=== PATIENT | male | born 1955 | race Caucasian/White ===

== ENCOUNTER 2024-04-11 10:38 | Emergency (ER) | payer MEDICARE, SELFPAY ==
[2024-04-11] VITALS (12 sets, daily range): BP systolic 126–181; BP diastolic 96–137; PULSE 63–114; RESP 20–25; TEMP 36.6; O2SAT 95–99
--- NOTE | 2024-04-11 11:31 | EKG12_ITS ---
Test Reason : SOB Blood Pressure : / mmHG Vent. Rate : 098 BPM Atrial Rate : 098 BPM P-R Int : 148 ms QRS Dur : 098 ms QT Int : 354 ms P-R-T Axes : 052 014 201 degrees QTc Int : 451 ms Normal sinus rhythm Possible Left atrial enlargement Possible Inferior infarct (cited on or before 29-AUG-2004) T wave abnormality, consider lateral ischemia Abnormal ECG Confirmed by AISHA FRANCIS, CLAUDE ([id number]), purchase request editor MORGAN NOVA ([id number]) on 04/12/2024 7:59:34 AM Referred By: Confirmed By:CLAUDE LEONARD MD
--- NOTE | 2024-04-11 11:32 | ED.VIS.DYS ---
HPI History of Present Illness Chief Complaint: Shortness of Breath Detail of Chief Complaint: Shortness of breath Informant: patient Narrative Narrative: Patient presents to the emergency department complaint shortness of breath that started 2 or 3 days ago. Patient also noted lower extremity swelling. Denies recent travel or surgery. No history of PE or DVT. He has no heart history and no history of CHF. He has minimal cough. He complains more of exertional dyspnea. No chest pain or pressure or heaviness noted. PFSH PFSH Home Medications ?Medication ?Instructions ?Recorded ?Last Taken ?Type apixaban 5 mg (74 tabs) tablets in See Rx Instructions .Route 04/11/24 Unknown Rx a dose pack (Eliquis DVT-PE Treat .COMPLEX #74 tabs 30D Start) furosemide 40 mg tablet (Lasix) 40 mg PO DAILY #5 tabs 04/11/24 Unknown Rx metoprolol succinate 25 mg capsule 25 mg PO DAILY #30 ea 04/11/24 Unknown Rx sprinkle, ext. release 24 hr (Kapspargo Sprinkle) Allergy/AdvReac Type Severity Reaction Status Date / Time bee venom protein (honey AdvReac Severe Anaphylaxis Verified 04/11/24 10:43 bee) (bee sting) Social History Smoking Status: Current every day smoker tobacco type: smokeless tobacco ROS ROS ED Review of Systems ROS Unobtainable: other Constitutional Constitutional ED: Reports lethargy; Denies chills, fever(s), sweats or weight loss Eyes Eyes: Denies blurry vision, change in vision or diplopia ENT ENT ED: Denies rhinorrhea or sore throat Cardiovascular Cardiovascular: Denies chest pain, orthopnea or racing heartbeat Respiratory/Chest Respiratory/Chest: Reports cough, dyspnea and dyspnea on exertion; Denies orthopnea or sputum Gastrointestinal Gastrointestinal: Denies abdominal pain, diarrhea, nausea or vomiting Genitourinary Genitourinary ED: Denies dysuria, hematuria or urinary frequency Musculoskeletal Musculoskeletal: Reports other Details: Bilateral leg swelling ; Denies arthralgias, back pain, myalgias or neck pain Integumentary Denies abscess, Abrasions or rash Neurologic Neurologic: Denies headache(s) or weakness Psychiatric Psychiatric: Denies anxiety, depression or suicidal thoughts Endocrine Endocrinology: Denies polydipsia, polyphagia or polyuria Hematologic/Lymphatic Hematologic/Lymphatic: Denies easy bleeding, easy bruising or lymphadenopathy Allergic/Immunologic Allergic/Immunologic ED: Denies mouth swelling, tongue swelling or urticaria EXAM Physical Exam Const Vital Signs: 04/11/24 10:41 04/11/24 10:50 04/11/24 11:39 Temperature 97.8 F Temperature Source Temporal Pulse Rate 114 H Respiratory Rate 20 H Respiratory Effort Short of Breath Respiratory Depth Normal Respiratory Pattern Tachypnea Blood Pressure 170/126 H Blood Pressure Mean 140 Pulse Ox 97 96 Oxygen Delivery Method Room Air Room Air Room Air 04/11/24 11:40 04/11/24 11:43 04/11/24 12:00 Temperature 98 F 97.8 F Temperature Source Temporal Temporal Pulse Rate 98 100 102 H Respiratory Rate 24 H 22 H 25 H Respiratory Effort Respiratory Depth Respiratory Pattern Blood Pressure 150/120 H 150/96 H 162/125 H Blood Pressure Mean 130 114 137 Pulse Ox 95 96 96 Oxygen Delivery Method Room Air Room Air Room Air 04/11/24 13:00 04/11/24 14:00 04/11/24 15:05 Temperature 97.9 F 98 F Temperature Source Temporal Temporal Pulse Rate 102 H 100 110 H Respiratory Rate 23 H 24 H Respiratory Effort Respiratory Depth Respiratory Pattern Blood Pressure 165/105 H 156/104 H 181/133 H Blood Pressure Mean 125 121 149 Pulse Ox 98 96 Oxygen Delivery Method Room Air Room Air 04/11/24 15:08 04/11/24 15:11 Temperature Temperature Source Pulse Rate 82 63 Respiratory Rate Respiratory Effort Respiratory Depth Respiratory Pattern Blood Pressure 181/137 H 126/108 H Blood Pressure Mean 151 114 Pulse Ox Oxygen Delivery Method Positive well nourished and well developed General Appearance ED: well developed and NAD HEENT Reports TM's clear and moist mucous membranes normocephalic and atraumatic; Negative for trauma or tenderness Tympanic Membrane ED: Yes TM's clear Eyes PERRL and EOMs intact bilaterally General Eye ED: Negative for pale conjunctiva or scleral icterus Neck no lymphadenopathy, supple and no JVD General: Negative for tenderness Chest Wall inspection of chest normal and palpation of chest normal Chest: Negative for tenderness Resp normal respiratory effort and clear to auscultation bilaterally Effort and Inspection: Negative for respiratory distress or pain with movement Auscultation: Negative for rhonchi, wheezes or diminished lung sounds Cardio regular rate, regular rhythm, S1 normal heart sound, S2 normal heart sound and no murmurs Peripheral Pulses: pulses 2+ throughout GI normal to inspection, nondistended, normoactive bowel sounds, soft to palpation, non-tender, non-distended and no masses Back/Spine no CVA tenderness and no thoracic nor lumbar tenderness Extremity normal to inspection Extremity Narrative: +2 edema below the knees bilaterally. General Extremety ED: Negative for edema General Extremity: Negative for edema Neuro oriented x3, CN's II-XII intact bilaterally, no sensory deficits noted and gait normal Sensorium / Orientation: awake, alert, oriented to person, oriented to place and oriented to time Motor Exam: strength 5/5 throughout and strength abnormal Psych mental status grossly normal Skin no rashes or lesions noted and no wounds MDM MDM MDM Narrative Medical decision making narrative: Patient presents to the ER with complaint of exertional dyspnea for 2 to 3 days with leg edema. Denies recent travel or surgery. No history of PE or DVT. No heart history. No history of CHF. Denies fever or recent illness. He has a slight cough. In the differential would be upper respiratory infection such as pneumonia versus acute coronary syndrome or PE. EKG obtained arrival showed a sinus rhythm with ventricular rate of [address] changes laterally. When compared with prior EKG from 2004 the nonspecific changes laterally are new. CBC with differential obtained showed a white count of 5.8 with hemoglobin 14.7 and platelet count of 134. Chemistries unremarkable. D-dimer elevated 1.83. Troponin normal at 57. BT HABITAT BIOLOGIST was elevated at 694. CTA of the chest showed small bilateral pulmonary emboli in the tertiary branches. Chest x-ray was unremarkable. Patient ambulated in the department and was not hypoxic. I did start patient on apixaban as well as Lasix and labetalol for elevated blood pressures here. Discussed case with hospitalist to felt patient did not meet criteria for inpatient admission and recommended outpatient follow-up. Patient has an appoint with cardiology in 2 days. Discussed case with patient's primary care physician Dr. Raji Melendez. Patient will be started on Eliquis as well as metoprolol and Lasix. He is to keep his appointment with cardiology. Patient will require further testing such as echocardiogram. Patient advised to return if chest pain, increasing shortness of breath, or condition should worsen anyway. Lab Data Attestation: I reviewed the patient's lab results. Labs: Laboratory Results - last 24 hr 04/11/24 11:25 WBC 5.8 RBC 4.74 Hgb 14.7 Hct 44.9 MCV 94.7 H MCH 31.0 MCHC 32.7 RDW Std Deviation 49.4 H RDW Coeff of Anastasia 14.2 Plt Count 134 L MPV 10.7 Immature Gran % (Auto) 0.300 Neut % (Auto) 74.6 H Lymph % (Auto) 14.4 L [place] % (Auto) 9.0 Eos % (Auto) 1.2 Baso % (Auto) 0.5 Absolute Neuts (auto) 4.3 Absolute Lymphs (auto) 0.83 Nucleated RBC % 0 D-Dimer Quant (PE/DVT) 1.83 H* Sodium 142 Potassium 4.0 Chloride 108 H Carbon Dioxide 27.0 Anion Gap 7 BUN 23 H Creatinine 1.20 Est GFR (MDRD) Af Amer 77 Est GFR (MDRD) Non-Af 64 BUN/Creatinine Ratio 19.2 Glucose 188 H Calcium 8.4 L Troponin I High Sens 57 B-Natriuretic Peptide 694.5 H Radiography Diagnostic Testing: Clinical Impression(s) from Imaging Studies Chest X-Ray 04/11/24 11:48 IMPRESSION: Stable elevation of the right hemidiaphragm. Mild linear atelectasis at the right lung base. Electronically Signed: Mina Qiunteros MD at 12:37 EDT , Chest CTA 04/11/24 12:16 IMPRESSION: Small intraluminal filling defects is seen in the distal tertiary branches of the right and left pulmonary arteries with mild bibasilar atelectasis. Electronically Signed: Mina Quinteros MD at 13:29 EDT , 1 view chest x-ray obtained interpreted by myself as no evidence of infiltrate or pneumothorax or evidence for congestive heart failure. Radiology in agreement felt there was stable elevation of the right hemidiaphragm and mild linear atelectasis. EKG Initial EKG: Attestation: I personally reviewed and interpreted this EKG as follows: Comments: Sinus rhythm with rate of [address] changes laterally. Prior EKG tracings: available for review Prior: Changed Discharge Plan Triage Chief Complaint: Shortness of Breath ED Provider: Roger Levi Dx/Rx/DC Orders Clinical Impression: Pulmonary emboli, Leg edema, Hypertension, CHF (congestive heart failure) Instructions: Pulmonary Embolism, ED Heart Failure, Congestive (CHF), ED Peripheral Edema, Bilateral, ED Hypertension New Begin Treatment Prescriptions: New EliOpen CS DVT-PE Treat 30D Start 5 mg (74 tabs) Tablets,Dose Pack See Rx Instructions .ROUTE .COMPLEX Qty: 74 0RF Rx Instructions: orally per package directions Kapspargo Sprinkle 25 mg capsule,sprinkle,ER 24hr 25 mg PO DAILY Qty: 30 0RF furosemide [Lasix] 40 mg tablet 40 mg PO DAILY Qty: 5 0RF Primary Care Provider: Raji Melendez Referrals: Raji Melendez MD [Primary Care Provider] - 3-5 Days Print Language: [place] Disposition Disposition: Home, Self Care
--- NOTE | 2024-04-11 11:48 | RAD_ITS ---
STUDY: X-RAY CHEST REASON FOR EXAM: Male, 68 years old. Dyspnea TECHNIQUE: Single AP portable view of the chest. COMPARISON: Comparison is made with prior study September 08, 2013. FINDINGS: EKG electrodes are seen. Elevation of the right hemidiaphragm. Mild right linear atelectasis. There is no demonstrated pleural abnormality. There is moderate cardiac enlargement. Normal mediastinum and parker. Normal visualized pulmonary arteries. There is atherosclerotic tortuosity of the aortic arch and descending thoracic aorta. There are diffuse degenerative changes of the visualized thoracic spine. Normal visualized ribs, clavicles, and shoulders. There is no demonstrated abnormality of the visualized soft tissue structures of the upper abdomen. RAD/Chest 1 View (Portable) IMPRESSION: Stable elevation of the right hemidiaphragm. Mild linear atelectasis at the right lung base. Electronically Signed: Mina Quinteros MD at 12:37 EDT ,
[2024-04-11 11:56] LABS: Absolute Lymphocyte Count 0.83 X10^3/uL (0.83-4.51); Absolute Neutrophil Count 4.3 X10^3/uL (2.0-7.7); Basophil# 0.03 X10^3/uL; Basophil% 0.5 % (0-1); Eosinophil# 0.07 X10^3/uL; Eosinophils% 1.2 % (0-5); Hematocrit 44.9 % (40-54); Hemoglobin 14.7 g/dL (13.0-16.5); Lymphocyte # 0.83 X10^3/ul (0.83-4.51); Lymphocyte % 14.4 % (19-41); Mean Corp Hgb Conc 32.7 g/dL (32-36); Mean Corpuscular Volume 94.7 fL (80-94); Mean Platelet Vol. 10.7 fl (6.2-12.0); Monocyte# 0.52 X10^3/uL; NRBC Flagged by Analyzer 0 % (0-5); Neutrophil % 74.6 % (47-70); Platelet Count 134 K/mm3 (150-450); RBC Distribution Width CV 14.2 % (11.6-14.6); RBC Distribution Width SD 49.4 fl (35.1-43.9); Red Blood Count 4.74 M/mm3 (4.6-6.2); White Blood Count 5.8 K/mm3 (4.4-11.0)
[2024-04-11 12:04] LABS: Anion Gap 7 (5-15); BUN 23 mg/dL (7-18); BUN/Creat Ratio 19.2 RATIO (10-20); Calcium,Total 8.4 mg/dL (8.5-10.1); Chloride 108 mmol/L (98-107); D-Dimer Quantitative (DVT/PE) 1.83 FEU/ug/m (0.27-0.49); EST Glomerular Filtration Rate 64 mL/min (>60); Est Glom Filt Rate - Afr Amer 77 mL/min (>60); Glucose 188 mg/dL (74-106); Sodium Level 142 mmol/L (136-145); Troponin-I HS 57 pg/mL (3.0-78.0)
--- NOTE | 2024-04-11 12:16 | CT_ITS ---
STUDY: CTA CHEST REASON FOR EXAM: Male, 68 years old. Dyspnea RADIATION DOSAGE (If Supplied By Facility): CTDIvol = ( 19.63 ) mGy, DLP = ( 512.62 ) mGycm TECHNIQUE: The examination was performed with the intravenous administration of 100ML ISOVUE 370. Post-processing of the angiographic images was performed, with multiplanar reformation and 3D reconstruction. Individualized dose optimization techniques were used for this CT. COMPARISON: Comparison is made with prior chest radiograph done earlier in the day. FINDINGS: Small intraluminal filling defects seen in the tertiary branches of both the right and left lower lobe pulmonary arteries in keeping with pulmonary emboli. There is atherosclerotic calcification of the aortic arch with tortuosity. There is no demonstrated aortic dissection. There is cardiomegaly. Coronary artery calcification. Normal mediastinum. Normal hilar regions. Normal visualized trachea and bronchi. The lungs are well expanded. Mild degree of bibasilar atelectasis. Normal pleura. Normal chest wall structures. There are degenerative changes of thoracic spine. The patient is status post cholecystectomy. CT/CTA Chest W/WO Contrast IMPRESSION: Small intraluminal filling defects is seen in the distal tertiary branches of the right and left pulmonary arteries with mild bibasilar atelectasis. Electronically Signed: Mina Quinteros MD at 13:29 EDT ,
[2024-04-11 12:20] LABS: BNP,B-Type NATRIURETIC PEPTIDE 694.5 pg/mL (0-100)
[2024-04-11] MEDS: Labetalol (Prefilled) 20 MG/4 ML Vial IV (15:02)
[2024-04-11] MEDS: APIXABAN 5 MG TABLET 10 MG PO (15:02)
[2024-04-11] MEDS: Furosemide 40 MG/4 ML Vial IV (15:02)
== END 2024-04-11 16:36 | disposition home or self-care (01) ==
PROVIDERS: Emergency Provider Emergency Medicine; PCP Family Medicine; Visit Provider Emergency Medicine
DX: I26.99 Other pulmonary embolism without acute cor pulmonale (principal); I11.0 Hypertensive heart disease with heart failure; I50.9 Heart failure, unspecified; R60.0 Localized edema; F17.220 Nicotine dependence, chewing tobacco, uncomplicated
CPT/HCPCS: 71045; 71275; 80048; 83880; 84484; 85025; 85379; 93005; 96374; 96375; 99285; J7040; Q9967; J1940

== ENCOUNTER → 2024-04-13 | Outpatient (CLI) | payer MEDICARE, SELFPAY ==
[2024-04-13 15:39] LABS: Anion Gap 6 (5-15); BUN 25 mg/dL (7-18); BUN/Creat Ratio 17.1 RATIO (10-20); Calcium,Total 8.7 mg/dL (8.5-10.1); Chloride 104 mmol/L (98-107); Creatinine, Serum 1.46 mg/dL (0.70-1.30); EST Glomerular Filtration Rate 51 mL/min (>60); Est Glom Filt Rate - Afr Amer 62 mL/min (>60); Glucose 243 mg/dL (74-106); Potassium 3.7 mmol/L (3.5-5.1); Sodium Level 140 mmol/L (136-145)
== END | disposition home or self-care (01) ==
PROVIDERS: PCP Family Medicine; Referring Provider Family Medicine; Visit Provider Family Medicine
DX: R60.9 Edema, unspecified (principal)
CPT/HCPCS: 36415; 80048

== ENCOUNTER → 2024-04-21 | Outpatient (CLI) | payer MEDICARE, SELFPAY ==
[2024-04-21 10:35] LABS: Anion Gap 5 (5-15); BUN 21 mg/dL (7-18); BUN/Creat Ratio 17.4 RATIO (10-20); Calcium,Total 9.1 mg/dL (8.5-10.1); Chloride 105 mmol/L (98-107); Creatinine, Serum 1.21 mg/dL (0.70-1.30); EST Glomerular Filtration Rate 63 mL/min (>60); Est Glom Filt Rate - Afr Amer 77 mL/min (>60); Glucose 136 mg/dL (74-106); Potassium 4.5 mmol/L (3.5-5.1); Sodium Level 140 mmol/L (136-145)
== END | disposition home or self-care (01) ==
PROVIDERS: PCP Family Medicine; Referring Provider Family Medicine; Visit Provider Family Medicine
DX: R73.09 Other abnormal glucose (principal)
CPT/HCPCS: 36415; 80048

== ENCOUNTER → 2024-04-26 | Outpatient (CLI) | payer MEDICARE, SELFPAY | END | disposition home or self-care (01) | PROVIDERS: PCP Family Medicine; Referring Provider Family Medicine; Visit Provider Family Medicine | DX: R06.02 Shortness of breath (principal) | CPT/HCPCS: 93306; Q9957; A4216; C8929 ==

== ENCOUNTER → 2024-05-19 | Outpatient (CLI) | payer MEDICARE, SELFPAY ==
--- NOTE | 2024-05-19 09:47 | VDLE_ITS ---
Reason For Study: Acute PE RIGHT LEFT GSV is normal. GSV is normal. CFV is compressible, spontaneous, phasic, CFV is compressible, spontaneous, phasic, competent and demonstrates normal competent, and demonstrates normal augmentation. augmentation. FV is compressible, spontaneous, phasic, FV is compressible, spontaneous, phasic, competent and demonstrates normal competent and demonstrates normal augmentation. augmentation. POP V is compressible, phasic, and POP V is compressible, spontaneous, phasic, INCOMPETENT for greater than 1.0 second. competent and demonstrates normal T/P Trunk is compressible. augmentation. RT PerV is compressible. T/P Trunk is compressible. PTV mid is partially compressible with normal PTV is compressible. venous flow. Remaining PTV is compressible. LT PerV is compressible. Procedure This is a venous duplex using B-mode, color flow and spectral Doppler. Exam performed in department. A preliminary report was called and/or faxed to [facility] [employer]. VL/Venous Duplex US - David Extrem Interpretation Summary Chronic deep vein thrombosis is noted in the right posterior tibial vein. Deep veins of the left lower extremity are patent and compressible segmentally. There is no evidence of left lower extremity deep vein thrombosis. The bilateral great saphenous vei ns appear patent and compressible segmentally. Ordering Physician: MIKE HUTSON Referring Physician: Raji Melendez Performed By: Rupinder Sheth RVT
== END | disposition home or self-care (01) ==
PROVIDERS: PCP Family Medicine
DX: I26.99 Other pulmonary embolism without acute cor pulmonale (principal)
CPT/HCPCS: 93970

== ENCOUNTER → 2024-07-13 | Outpatient (CLI) | payer MEDICARE, SELFPAY ==
--- NOTE | 2024-07-13 10:02 | RAD_ITS ---
PROCEDURE: KNEE 4 OR MORE VIEWS REASON FOR EXAM: Pain. TECHNIQUE: Four view right knee series and four view left knee series (combined dictation) COMPARISON: None. RAD/Knee 4 or More Views IMPRESSION: No joint effusion is seen on either side. On the right, the partially visualized distal femur and thighs show posttraumat ic changes and extensive shrapnel present. Overall moderate tricompartmental right knee degenerative changes are seen, wit h moderately severe medial and moderate patellofemoral joint narrowing noted. Right-sided genu varus is also noted. On the left, moderate tricompartmental degenerative changes are seen, with mode rate to moderately severe medial joint narrowing and associated genu varus. At least mild patellofemoral joint narrowing is als o noted. No acute fracture or dislocation is seen. Reading Location: [id number]
--- NOTE | 2024-07-13 10:02 | RAD_ITS ---
PROCEDURE: KNEE 4 OR MORE VIEWS REASON FOR EXAM: Pain. TECHNIQUE: Four view right knee series and four view left knee series (combined dictation) COMPARISON: None. RAD/Knee 4 or More Views IMPRESSION: No joint effusion is seen on either side. On the right, the partially visualized distal femur and thighs show posttraumat ic changes and extensive shrapnel present. Overall moderate tricompartmental right knee degenerative changes are seen, wit h moderately severe medial and moderate patellofemoral joint narrowing noted. Right-sided genu varus is also noted. On the left, moderate tricompartmental degenerative changes are seen, with mode rate to moderately severe medial joint narrowing and associated genu varus. At least mild patellofemoral joint narrowing is als o noted. No acute fracture or dislocation is seen. Reading Location: [id number]
== END | disposition home or self-care (01) ==
LOC: MTRAD 09:52
PROVIDERS: PCP Family Medicine; Referring Provider Family Medicine; Visit Provider Family Medicine
DX: M17.0 Bilateral primary osteoarthritis of knee (principal)
CPT/HCPCS: 73564

== ENCOUNTER → 2024-08-12 | Outpatient (CLI) | payer MEDICARE, SELFPAY ==
[2024-08-12 11:06] LABS: Anion Gap 11 (5-15); BUN 16 mg/dL (4-19); BUN/Creat Ratio 14.7 RATIO (10-20); Calcium 9.3 mg/dL (7.6-11.0); Chloride 101 mmol/L (96-108); Creatinine, Serum 1.07 mg/dL (0.70-1.20); EST Glomerular Filtration Rate 75 (>60); Glucose 213 mg/dL (70-99); Potassium 4.1 mmol/L (3.3-5.1); Sodium Level 139 mmol/L (133-145)
== END | disposition home or self-care (01) ==
LOC: MTLAB 08:48
PROVIDERS: PCP Family Medicine
DX: I42.0 Dilated cardiomyopathy (principal)
CPT/HCPCS: 36415; 80048

== ENCOUNTER → 2024-09-12 | Outpatient (CLI) | payer MEDICARE, SELFPAY ==
[2024-09-12 12:31] LABS: Anion Gap 12 (5-15); BUN 15 mg/dL (4-19); BUN/Creat Ratio 14.4 RATIO (10-20); Calcium,Total 9.4 mg/dL (7.6-11.0); Carbon Dioxide 23.9 mmol/L (21.0-32.0); Chloride 102 mmol/L (98-108); Creatinine, Serum 1.07 mg/dL (0.70-1.20); EST Glomerular Filtration Rate 75 (>60); Glucose 144 mg/dL (70-99); Potassium 4.3 mmol/L (3.3-5.1); Sodium Level 138 mmol/L (133-145)
== END | disposition home or self-care (01) ==
LOC: MTLAB 09:54
PROVIDERS: PCP Family Medicine
DX: I25.5 Ischemic cardiomyopathy (principal)
CPT/HCPCS: 36415; 80048

== ENCOUNTER → 2024-09-26 | Outpatient (CLI) | payer MEDICARE, SELFPAY ==
[2024-09-26 17:52] LABS: Anion Gap 10 (5-15); BUN 16 mg/dL (4-19); Calcium,Total 9.2 mg/dL (7.6-11.0); Carbon Dioxide 24.7 mmol/L (21.0-32.0); Chloride 103 mmol/L (98-108); Creatinine, Serum 1.09 mg/dL (0.70-1.20); EST Glomerular Filtration Rate 73 (>60); Glucose 146 mg/dL (70-99); Potassium 4.3 mmol/L (3.3-5.1); Sodium Level 138 mmol/L (133-145)
== END | disposition home or self-care (01) ==
LOC: MTLAB 13:16
PROVIDERS: PCP Family Medicine
DX: I50.22 Chronic systolic (congestive) heart failure (principal)
CPT/HCPCS: 36415; 80048

== ENCOUNTER → 2024-10-13 | Outpatient (CLI) | payer MEDICARE, SELFPAY ==
[2024-10-13 18:51] LABS: ALB/GLOB Ratio 1.3 RATIO (0.9-2.4); AST(SGOT) 32 U/L (<=37); Alanine Aminotransfer ALT/SGPT 31 U/L (<=46); Albumin, Serum 4.2 g/dL (3.4-4.8); Alkaline Phosphatase 56 U/L (40-129); Anion Gap 11 (5-15); BUN 18 mg/dL (4-19); BUN/Creat Ratio 16.5 RATIO (10-20); Calcium,Total 9.2 mg/dL (7.6-11.0); Carbon Dioxide 25.3 mmol/L (21.0-32.0); Chloride 103 mmol/L (98-108); Cholesterol 102 mg/dL (<=200); EST Glomerular Filtration Rate 73 (>60); Globulin 3.3 g/dL (2.2-4.2); Glucose 111 mg/dL (70-99); High Density Lipoprotein 36 mg/dL; Low Density Lipoprotein Calc. 35 mg/dL; Potassium 4.4 mmol/L (3.3-5.1); Protein, Total 7.5 g/dL (5.9-8.4); Sodium Level 139 mmol/L (133-145); Total Bilirubin 0.31 mg/dL (0.00-1.30); Triglycerides 153 mg/dL; Very Low Density Lipoprotein 31 mg/dL (5-40)
== END | disposition home or self-care (01) ==
LOC: MTLAB 15:58
PROVIDERS: PCP Family Medicine
DX: I50.22 Chronic systolic (congestive) heart failure (principal); I25.10 Atherosclerotic heart disease of native coronary artery without angina pectoris; I34.0 Nonrheumatic mitral (valve) insufficiency; I25.5 Ischemic cardiomyopathy
CPT/HCPCS: 36415; 80053; 80061